=== PATIENT | female | born 1985 | race Caucasian/White ===

== ENCOUNTER 2017-09-24 11:04 | Inpatient (IN) | payer BC ==
[2017-09-24] MEDS ORDERED: fentaNYL 2MCG/ML/BUP 0.1% RTU 100 ML BAG EP ONE (11:13)
[2017-09-24] MEDS ORDERED: BUPIVACAINE 0.25% 30 ML SDV ONE (11:14)
[2017-09-24] MEDS ORDERED: PHENYLEPHRINE HCL 100 MCG/ML SYR ONE (11:14)
[2017-09-24] MEDS ORDERED: NS IV PRN (11:17)
[2017-09-24] MEDS ORDERED: LR 1,000 ML IV PRN (11:17)
[2017-09-24] MEDS ORDERED: TERBUTALINE SULFATE 1 MG/ML VIAL IV PRN (11:17)
[2017-09-24] MEDS ORDERED: OLIVE OIL 118 ML BTL MISC PRN (11:17)
[2017-09-24] MEDS ORDERED: OXYTOCIN IV PRN (11:17)
[2017-09-24] MEDS ORDERED: IBUPROFEN 600 MG TAB PO PRN (11:17)
[2017-09-24] MEDS ORDERED: EPSOM SALT 454 GM TP PRN (11:17)
[2017-09-24] MEDS ORDERED: AMPICILLIN SODIUM 2 GM in NS 100 ML IV ONE (11:30)
[2017-09-24 11:36] LABS: % IMMATURE GRANULYOCYTES 0.5 % (0.0-1.1); ABSOLUTE IMMATURE GRANULOCYTES 0.07 10^3/uL (0.00-0.10); ADD DIFF? NO; ADD MORPH? NO; ADD SCAN? NO; ATYPICAL LYMPHOCYTE FLAG 0 (0-99); FRAGMENT RBC FLAG 0 (0-99); HEMOGLOBIN 14.9 g/dL (12.6-16.3); LEFT SHIFT FLG 0 (0-99); LIPEMIA HEMOLYSIS FLAG 90 (0-99); MEAN CELL HEMOGLOBIN 29.3 pg (27.9-34.1); MEAN CELL HEMOGLOBIN CONCENTR. 34.7 g/dL (32.4-36.7); MEAN CELL VOLUME 84.5 fL (81.5-99.8); MEAN PLATELET VOLUME 11.7 fL (8.7-11.7); PLATELET CLUMPS FLAG 20 (0-99); PLATELET COUNT 201 10^3/uL (150-400); RED BLOOD CELL COUNT 5.09 10^6/uL (4.18-5.33); RED CELL DISTRIBUTION WIDTH 13.6 % (11.5-15.2)
--- NOTE | 2017-09-24 12:08 | PREANESOB ---
Obstetric Pre-Anesthesia Info - General Info : 3 Para: 1 [place]: 10/06/17 Gestational Age: 38 week(s) and 2 day(s) - Info Status: Full Term - Labor Status Cervical Dilation per last OB SVE: 8 Indications for Labor Analgesia: Pain Control Labor Epidural: Yes Anesthesia Allergies/Adverse Reactions: Allergy/AdvReac Type Severity Reaction Status Date / Time No Known Allergies Allergy Unverified 09/24/17 11:16 Visit Medications: Generic Name Dose Route Start Last Admin Trade Name Zaheer PRN Reason Stop Dose Admin Ampicillin Sodium 1 gm/ Sodium 100 mls @ 200 mls/hr 09/24/17 15:00 Chloride IV 10/24/17 14:59 Q4H BALBIR Lactated Ringer's 1,000 mls @ 0 mls/hr 09/24/17 11:17 Lr IV 03/23/18 11:16 PRN PRN SEE PROTOCOL CONDITIONS Protocol Per Protocol Oxytocin 20 unit/ Sodium 1,002 mls @ 150 mls/hr 09/24/17 11:17 Chloride IV PRN PRN Post- bleeding Ibuprofen 600 mg 09/24/17 11:17 Motrin PO 03/23/18 11:16 Q6HRS PRN post , inflammation Magnesium Sulfate 454 gm 09/24/17 11:17 Epsom Salt TP 03/23/18 11:16 Q1H PRN perineal discomfort [place] Oil 118 ml 09/24/17 11:17 Sweet Oil MISC 03/23/18 11:16 ONCE PRN perineal massage Terbutaline Sulfate 0.25 mg 09/24/17 11:17 Brethine IV 03/23/18 11:16 ONCE PRN Tachysystole Discontinued Medications Generic Name Dose Route Start Last Admin Trade Name Zaheer PRN Reason Stop Dose Admin Bupivacaine HCl Confirm 09/24/17 11:14 Sensorcaine 0.25% Sdv Administered 09/24/17 11:15 Dose 30 ml .ROUTE .STK-MED ONE Fentanyl/Bupivacaine HCl Confirm 09/24/17 11:13 Fentanyl/Bupivacaine/Ns 2 Mcg/Ml 0.1% (Premix Administered 09/24/17 11:14 Dose 100 ml EP .STK-MED ONE Ampicillin Sodium 2 gm/ Sodium 110 mls @ 220 mls/hr 09/24/17 11:30 Chloride IV 09/24/17 11:59 ONCE ONE Phenylephrine HCl Confirm 09/24/17 11:14 Neosynephrine Administered 09/24/17 11:15 Dose 1,000 mcg .ROUTE .STK-MED ONE - Anesthesia History Response to Local Anesthetics: Normal Anesthesia & Operative History: No Prior Problems Family Anesthesia History: Negative - Social History Substance Use/Abuse: Denies - Vital Signs Latest Vital Signs (Nursing): see nursing documentation Height/Weight (Nursing): Height 167.64 cm Weight 108.862 kg - Focused Exam Neck exam: FROM Mallampati Score: Class 2 Mouth exam: normal dental/mouth exam Pulmonary: no respiratory distress Cardiovascular: regular rate and rhythym Labs: 09/24/17 11:20 Patient ABO/Rh B POSITIVE 09/24/17 11:20 - Plan Anesthetic Plan: MICHA Consent Signed and on Chart: Yes Patient/Guardian Understands and Agrees to Plan: Yes Urgent/Emergent Case: Cj arce completed preop but documented later for safe timely pt care
--- NOTE | 2017-09-24 12:10 | POSTANESTH ---
Post Anesthetic Evaluation Cardiovascular Status: Normal, Stable, Similar to Pre-Op Cond Respiratory Status: Normal, Stable, Similar to Pre-op Cond. Level of Consciousness/Mental Status: Can Participate in Eval, Alert and Oriented Pain Control: Adequate, Prn Tx Ordered Nausea/Vomiting Control: Adequate, Prn Tx Ordered Complications Possibly Related to Anesthesia: None Noted
--- NOTE | 2017-09-24 12:27 | GHP ---
[f rep st] HISTORY AND PHYSICAL DATE OF ADMISSION: 09/24/2017 ADMITTING DIAGNOSES: 1. Intrauterine at 38 and 2 weeks. 2. Active labor. 3. Group B streptococcus positive. 4. LGA fetus HISTORY OF PRESENT ILLNESS: Patient is a 32-year-old 3, para 1-0-1-1 at 38-2/7 weeks with an estimated due date 10/06/2017 by last menstrual period 12/30/2016 and confirmed by first-trimester ultrasound at 8 weeks. The patient presents from [place] to my office with complaints of contractions all night long. She slept through them, and then they woke her up at 5 a.m. this morning and have been every 3-4 minutes. The patient denies any leakage of fluid or vaginal bleeding. She does notice increased mucus-like discharge. Good movement noted. The patient has good care at [facility], and presented in her 1st trimester at 8 weeks. is complicated by LGA fetus with EFW 98% on most recent u/s at 36 weeks. The patient has an elevated BMI and did have an early 1-hour Glucola that was normal. She has a history of situational depression, currently on no medications. Patient did receive both flu vaccine and Tdap. GBS culture is positive. PAST OBSTETRIC HISTORY: In April of 2012, she had a viable male at 39 weeks, weighing 8 pounds 9 ounces at [facility]. Then in September of 2012, she had an SAB at 8 weeks, a blighted ovum, that did not require a D and C. GYNECOLOGIC HISTORY: Age of menarche was 12. Cycles are every 25 days for 3-5 days. LMP 12/30/2016. Positive test 01/23/2017. The patient denies history of abnormal Pap smears and denies any exposure to sexually transmitted diseases. She has been on OCPs in the past and used condoms after her first . PAST MEDICAL HISTORY: Kidney stones. Situational depression diagnosed at 16 years old, she took Paxil for 4 months and then recurrent in 2014 and has been stable ever since. She fractured her left arm secondary to gymnastics fall. PAST SURGICAL HISTORY: Unremarkable. FAMILY HISTORY: Maternal grandfather with heart disease, myocardial infarction. Mother, father and maternal grandmother with chronic hypertension. Maternal grandmother with COPD secondary to smoking. Mother and sister with migraine headaches, as well as depression. SOCIAL HISTORY: Patient is . She lives with her , Aroldo, and their son, Domo. She is a [id number] mom. Denies any alcohol, tobacco or illicit drug use. MEDICATIONS: [id number] with DHA, Zantac. ALLERGIES: No known drug allergies. LABS: Blood type B positive, antibody negative. RPR nonreactive. Rubella immune. Hepatitis B surface antigen negative. HIV negative. Urine culture negative. Pap smear negative. GC, chlamydia cultures negative. One hour Glucola 80. H and H 12.4, 37.2. GBS is positive. PHYSICAL EXAMINATION: VITAL SIGNS: On admission, vital signs are stable. Patient is afebrile. GENERAL: Well-nourished, well-developed female, alert and oriented x3. Mod distress secondary to painful contractions. CARDIOVASCULAR: Regular rate and rhythm. LUNGS: Clear to auscultation bilaterally. ABDOMEN: Gravid, soft, nontender. Contractions are palpated. PELVIC: On exam, she is found to be 7-8 cm, 100%, -2, intact, cephalic. EXTREMITIES: Normal to inspection without calf tenderness, but pedal edema is noted. ASSESSMENT: The patient is a 32-year-old, 3, para 1-0-1-1, at 38-2/7 weeks, who presents in active labor. PLAN: 1. Admit to Labor and Delivery for expectant management. 2. GBS is positive. Will treat with prophylactic antibiotics, ampicillin. 3. Patient desires an epidural at this time. 4. Anticipate vaginal delivery. /[id number]/MODL MTDD
[2017-09-24] MEDS: AMPICILLIN SODIUM 1 GM in NS 100 ML IV SCH ×3 (15:08→23:27)
[2017-09-24] MEDS ORDERED: LIDOCAINE 1% 300 MG/30 ML SDV ONE (15:19)
[2017-09-24] MEDS ORDERED: OXYTOCIN 10 UNIT/ML VIAL ONE (15:19)
[2017-09-24] MEDS ORDERED: OLIVE OIL 118 ML BTL ONE (15:19)
[2017-09-24] MEDS ORDERED: MISOPROSTOL 200 MCG TAB ONE (15:20)
--- NOTE | 2017-09-24 16:02 | OBPROG ---
Labor Progress Note Assessment/Plan: Assessment: 32 y/o @ 38 2/7 wks in active labor Plan: Continue expectant management s/p epidural s/p abx -Amp x 2 doses for GBS prophylaxis AROM - clear fluid noted, small amount FHTs - Cat II tracing with early decels noted and intermittent variable decels Anticipate 09/24/17 15:59 Subjective/Intrapartum Course: 09/24/17 16:01 Pt is comfortable, s/p epidural. She can feel some pressure. Objective: 09/24/17 11:20 Patient ABO/Rh B POSITIVE 09/24/17 11:20 - SVE Dilation (cm): 9 (Ant lip) Effacement (%): 100 Station: 0 Membranes: AROM Amniotic Fluid Color: Clear - Contraction Pattern Assessment Current Contraction Pattern: Regular (q3 min) - FHR Assessment [place] FHR (bpm): 140 FHR Pattern Variability: Moderate FHR Category: 2 (intermittent variable decels, early decels noted) - Procedures Non-surgical Procedures: Amniotomy - AP Antepartum Course: 09/24/17 16:03 Pt presents in active labor at 7-8 cm. GBS +. LGA fetus with EFW >98% on u/s. Oxytocin Orders Assessment - Pre-Induction/Augmentation Assessment Gestational Age: 38 week(s) and 2 day(s) ICD10 Worksheet Patient Problems: Problems Problem Status Onset Active labor at term Acute GBS (group B Streptococcus carrier), +RV culture, currently Acute - ICD10 Problem Qualifiers (1) Active labor at term (2) GBS (group B Streptococcus carrier), +RV culture, currently
[2017-09-24] MEDS ORDERED: HYDROCODONE/APAP 5/325 TAB PO PRN (17:18)
[2017-09-24] MEDS ORDERED: SIMETHICONE 80 MG TAB CHEW PO PRN (17:18)
[2017-09-24] MEDS ORDERED: HYDROCORTISONE 0.5% CREAM TP PRN (17:18)
--- NOTE | 2017-09-24 17:23 | OBDEL ---
Info Type: Vaginal Presentation at Delivery: Vertex L&D Analgesia/Anesthesia Type: Epidural GBS+: Yes Antibiotic Used for + GBS: Ampicillin Intrapartum Medications: Generic Name Dose Route Start Last Admin Trade Name Zaheer PRN Reason Stop Dose Admin Ampicillin Sodium 1 gm/ Sodium 100 mls @ 200 mls/hr 09/24/17 15:00 09/24/17 15:08 Chloride IV 10/24/17 14:59 100 mls Q4H BALBIR Administration Discontinued Medications Generic Name Dose Route Start Last Admin Trade Name Frejose PRN Reason Stop Dose Admin Ampicillin Sodium 2 gm/ Sodium 110 mls @ 220 mls/hr 09/24/17 11:30 09/24/17 11:30 Chloride IV 09/24/17 11:59 110 mls ONCE ONE Administration - Hospital Course Intrapartum: 09/24/17 16:01 Pt is comfortable, s/p epidural. She can feel some pressure. Indications for Delivery: Spontaneous Labor Vaginal Delivery - Delivery Provider Delivery Physician/CNM: Shobha Arias - Labor and Delivery Onset of Contractions Date: 09/24/17 Onset of Contractions Time: 05:00 Onset of Contractions Type: Spontaneous Rupture of Membranes Date: 09/24/17 Rupture of Membranes Time: 15:30 Rupture of Membranes Type: Artificial Amniotic Fluid Color: Clear Dilation Complete Date: 09/24/17 Dilation Complete Time: 16:30 Placenta Delivery Date: 09/24/17 Placenta Delivery Time: 17:05 Total Hours of Labor: 12 Non-surgical Procedures: Amniotomy Repair: Other (Specify) (none) Vaginal Sponge Count Correct: Yes Vaginal Needle Count Correct: Yes Vaginal Sweep Performed: Yes EBL: 300cc Delivery Events: Nuchal Cord (x1 loose - slipped) Delivery Comment: No complications Data [place] Delivery Date: 09/24/17 Delivery Time: 17:00 [place]: 10/06/17 Gestational Age: 38 week(s) and 2 day(s) Sex of : Female ("Chelsea Patten") Score (1 Min): 8 Score (5 Min): 9 ICD10 Worksheet Patient Problems: Problems Problem Status Onset Active labor at term Acute GBS (group B Streptococcus carrier), +RV culture, currently Acute (spontaneous vaginal delivery) Acute - ICD10 Problem Qualifiers (1) Active labor at term (2) GBS (group B Streptococcus carrier), +RV culture, currently (3) (spontaneous vaginal delivery)
[2017-09-24] MEDS ORDERED: PHENYLEPHRINE HCL 100 MCG/ML SYR IVP PRN (18:17)
[2017-09-24] MEDS ORDERED: NALOXONE HCL 0.4 MG/ML INJ IVP PRN (18:17)
[2017-09-24] MEDS ORDERED: ONDANSETRON 4 MG/2 ML VIAL IVP PRN (18:17)
[2017-09-24] MEDS ORDERED: LR 500 ML IV SCH (18:30)
[2017-09-24] MEDS: IBUPROFEN 600 MG TAB PO PRN (19:41)
[2017-09-25] MEDS: IBUPROFEN 600 MG TAB PO PRN ×4 (01:40→19:59)
[2017-09-25] MEDS: DOCUSATE SODIUM 100 MG CAP PO PRN (07:53)
--- NOTE | 2017-09-25 09:36 | OBPP ---
Progress Note Assessment/Plan: Assessment: 1) s/p PPD # 1 - pt is stable 2) Plan: Continue routine pp care Plan for d/c home in am 09/2609/25/17 09:33 Subjective/ Course: 09/25/17 09:34 Pt seen and examined. Doing well with no complaints. Mild cramping. Mod lochia with large clots this am. Pt is OOB, octavio reg diet, voiding and passing flatus. BF well so far-brought shield secondary to sore nipples. Objective: 09/24/17 11:20 Patient ABO/Rh B POSITIVE 09/24/17 11:20 Temp Pulse Resp BP Pulse Ox 36.4 C 74 16 99/63 L 97 09/24/17 23:15 09/24/17 23:15 09/24/17 23:15 09/24/17 23:15 09/24/17 21:00 Uterine Position/Fundal Height: Umbilicus -2 Uterine Tone: Firm Physical Exam - Physical Exam Respiratory: lungs clear, normal breath sounds Cardiac/Chest: regular rate, rhythm Abdomen: normal bowel sounds, non-tender, soft, flatus (+) Extremities: non-tender, normal inspection, swelling (pedal edema noted) Skin: normal color, warm/dry Neuro/Psych: alert, normal mood/affect, oriented x 3
[2017-09-25 11:48] VITALS: RESP 18; TEMP 97.7
[2017-09-26] MEDS: IBUPROFEN 600 MG TAB PO PRN ×2 (01:58→09:34)
[2017-09-26 02:14] VITALS: BP 104/68; PULSE 69; O2SAT 97
[2017-09-26] MEDS: DOCUSATE SODIUM 100 MG CAP PO PRN (09:34)
--- NOTE | 2017-09-26 12:00 | OBPP ---
Progress Note Assessment/Plan: Assessment: PPD 2 s/p Plan: routine care, D/C home 09/26/17 11:58 Subjective/ Course: 09/25/17 09:34 Pt seen and examined. Doing well with no complaints. Mild cramping. Mod lochia with large clots this am. Pt is OOB, octavio reg diet, voiding and passing flatus. BF well so far-brought shield secondary to sore nipples. 09/26/17 11:59 Pt doing well. working on BF and pumping. bld is lessening. urinating fine. moderate cramps controlled with ibu. ready for d/c Objective: 09/24/17 11:20 Patient ABO/Rh B POSITIVE 09/24/17 11:20 Temp Pulse Resp BP Pulse Ox 36.5 C 69 18 104/68 97 09/26/17 02:10 09/26/17 02:10 09/26/17 02:10 09/26/17 02:10 09/26/17 02:10 Uterine Position/Fundal Height: Umbilicus -1 Uterine Tone: Firm Physical Exam - Physical Exam Abdomen: non-tender, soft Extremities: non-tender, pedal edema (moderate) Skin: normal color, warm/dry Neuro/Psych: alert, normal mood/affect
--- NOTE | 2017-09-26 12:06 | OBGCSDC ---
General Delivery Information - General Info : 3 Para: 2 Abortions: 1 Type: Vaginal L&D Analgesia/Anesthesia Type: Epidural Admission Date: 09/24/17 Labs: Patient ABO/Rh B POSITIVE 09/24/17 11:20 Hct 43.0 % (38.0-47.0) 09/24/17 11:20 - Hospital Course Antepartum: 09/24/17 16:03 Pt presents in active labor at 7-8 cm. GBS +. LGA fetus with EFW >98% on u/s. Intrapartum: 09/24/17 16:01 Pt is comfortable, s/p epidural. She can feel some pressure. : 09/25/17 09:34 Pt seen and examined. Doing well with no complaints. Mild cramping. Mod lochia with large clots this am. Pt is OOB, octavio reg diet, voiding and passing flatus. BF well so far-brought shield secondary to sore nipples. 09/26/17 11:59 Pt doing well. working on BF and pumping. bld is lessening. urinating fine. moderate cramps controlled with ibu. ready for d/c Vaginal - Delivery Provider Delivery Physician/CNM: Shobha Arias - Diagnosis Labor: Spontaneous Rupture of Membranes Type: Artificial Amniotic Fluid Color: Clear Repair: Other (Specify) (none) Delivery Events: Nuchal Cord (x1 loose - slipped) - Procedures Non-surgical Procedures: Amniotomy - Delivery Non-surgical Procedures: Amniotomy EBL: 300cc [place] Data [place] Delivery Date: 09/24/17 Delivery Time: 17:00 [place]: 10/06/17 Gestational Age: 38 week(s) and 4 day(s) Sex of : Female [place] Weight (gm): 3492 kg Score (1 Min): 8 Score (5 Min): 9 Discharge Information - Discharge Information Condition: Good Instruction/Follow Up: See Instruction Sheet, Four Weeks (with therapist), Six Weeks
== END 2017-09-26 14:00 | disposition home or self-care (01) | DRG 775 ==
LOC: FLD 11:04 → FOB 20:42
PROVIDERS: ADMIT Obstetrics & Gynecology; ATTEND Obstetrics & Gynecology
DX: O99.824 Streptococcus B carrier state complicating childbirth (principal); O76 Abnormality in fetal heart rate and rhythm complicating labor and delivery; O36.63X0 Maternal care for excessive fetal growth, third trimester, not applicable or unspecified; O69.81X0 Labor and delivery complicated by cord around neck, without compression, not applicable or unspecified; Z3A.38 38 weeks gestation of pregnancy; Z37.0 Single live birth
CPT/HCPCS: J0290; J2370